=== PATIENT | female | born 1975 | race Caucasian/White ===

== ENCOUNTER 2018-01-12 16:20 | Emergency (ER) | payer BC ==
[~2018-01-12] VITALS: Ht 167.6 cm; Wt 113.4 kg
[~2018-01-12 16:20] MED LIST: ACETAMINOPHEN-1 EAC1 PO; ALDACTONE25 MG; ALDACTONE25 MG PO; AZITHROMYCIN 2250 MG PO; CIPRODEX OTIC7.5 ML OTIC; CIPROFLOXIN HC2.5 M1 OTIC; FLEXERIL PO; HYDROCODON-ACE1 EAC7 PO; HYDROCODONE-AP1 EAC6 PO; IBUPROFEN 800800 M1 PO; LIPITOR10 MG PO; MEDROLDOSEPACK PO; MOMETASONE FURO30 ML; NAPROSYN500 MG PO; NOHOMEMEDICATIONS; NORCO 5-325 TA1 EAC1 PO; PROAIR HFA8.5 GM INH; PROMETHAZINE D480 ML PO; ROBAXIN500 MG PO; TESSALON PERLE100 MG PO; TOPAMAX 100 MG100 MG PO; TORADOL 10 MG T10 MG PO; TRAZODONE HCL50 MG PO; ZOFRAN ODT4 MG PO; ZOFRAN4 MG PO; ZPAK PO
[2018-01-12 16:48] LABS: URINE BILIRUBIN NEGATIVE (Negative); URINE BLOOD NEGATIVE (Negative); URINE CLARITY CLEAR; URINE COLOR YELLOW; URINE GLUCOSE-RANDOM NEGATIVE (Negative); URINE KETONES NEGATIVE (Negative); URINE LEUKOCYTES-REFLEX NEGATIVE (Negative); URINE NITRITE-REFLEX NEGATIVE (Negative); URINE PROTEIN NEGATIVE (Negative); URINE SPECIFIC GRAVITY 1.015 (1.005-1.030); URINE UROBILINOGEN 0.2 E.U./dl (0.2-1.0)
[2018-01-12 16:56] LABS: ABSOLUTE BASOPHILS 0.1 thou/uL (0.0-0.2); ABSOLUTE EOSINOPHILS 0.4 thou/uL (0.0-0.7); ABSOLUTE LYMPHOCYTES 2.8 thou/uL (0.8-5.3); ABSOLUTE MONOCYTES 0.6 thou/uL (0.0-1.2); ABSOLUTE NEUTROPHILS 5.9 thou/uL (1.6-8.1); BASOPHILS 0.7 %; EOSINOPHILS 4.1 %; HEMATOCRIT 40.7 % (37.0-47.0); HEMOGLOBIN 14.1 gm/dL (12.0-15.0); LYMPHOCYTES 28.7 %; MCH 31.4 pg (26.0-34.0); MCHC 34.6 g/dL (28.0-37.0); MCV 90.6 fL (80.0-100.0); MONOCYTES 6.1 %; MPV 7.6 fl. (7.2-11.1); NUCLEATED RBCS 0 /100WBC; PLATELET COUNT* 246 thou/uL (150-400); POLYS 60.4 %; RBC 4.49 mil/uL (4.20-5.00); RDW-CV 13.4 % (10.5-14.5); WBC 9.8 thou/uL (4.0-11.0)
[2018-01-12 17:01] LABS: ANION GAP 7 mmol/L (7-16); BUN 9 mg/dL (7-18); CALCIUM 8.2 mg/dL (8.5-10.1); CHLORIDE 107 mmol/L (98-107); CO2 25 mmol/L (21-32); CREATININE 0.8 mg/dL (0.6-1.3); GLUCOSE 139 mg/dL (70-99); POTASSIUM 3.5 mmol/L (3.5-5.1); SODIUM 139 mmol/L (136-145)
[2018-01-12 17:08] LABS: ALBUMIN 3.5 g/dL (3.4-5.0); ALKALINE PHOSPHATASE 59 U/L (46-116); LIPASE 250 U/L (73-393); SGOT 12 U/L (15-37); SGPT 21 U/L (30-65); TOTAL BILIRUBIN 0.2 mg/dL (<0.1-1.0); TOTAL PROTEIN 7.3 g/dL (6.4-8.2); TROPONIN-I LEVEL <0.06 ng/mL (<0.06)
[2018-01-12] MEDS ORDERED: BENTYL 20 MG TA20 M1 PO (17:33)
[2018-01-12] MEDS ORDERED: IMODIUM A-D2 MG PO (17:33)
[2018-01-12] MEDS ORDERED: PHENERGAN 25 MG25 M1 PO (17:33)
[2018-01-12 17:42] VITALS: BP 125/76
--- NOTE | 2018-01-14 10:22 | EKG ---
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 : 1975 Requested By: Nolan Woo Order Number: [id number] MD: Juan Ozuna Measurements Intervals [place] Rate: 81 P: 26 TN: 143 QRS: 4 QRSD: 90 T: 44 QT: 380 QTc: 441 Interpretive Statements Sinus rhythm Low voltage, precordial leads Borderline T abnormalities, anterior leads Compared to ECG 03/08/2016 21:17:13 T-wave abnormality now present Electronically Signed On 01-14-2018 10:21:56 CDT by Juan Ozuna [email or web address] <ELECTRONICALLY SIGNED> By: Juan Ozuna MD, [facility] 01/14/18 1021 1718 1718 Juan Ozuna MD, [facility] /EPI
== END 2018-01-12 17:44 | disposition home or self-care (01) ==
LOC: M.ERS 16:20
PROVIDERS: Emergency Medicine Emergency Medical Services
DX: K52.9 Noninfective gastroenteritis and colitis, unspecified (principal); M79.7 Fibromyalgia; F17.210 Nicotine dependence, cigarettes, uncomplicated; Z88.2 Allergy status to sulfonamides; Z88.0 Allergy status to penicillin; Z91.041 Radiographic dye allergy status; Z91.040 Latex allergy status; Z88.6 Allergy status to analgesic agent; Z87.442 Personal history of urinary calculi

== ENCOUNTER 2018-02-22 10:46 | Emergency (ER) | payer BC ==
[~2018-02-22] VITALS: Ht 167.6 cm; Wt 113.4 kg
[~2018-02-22 10:46] MED LIST changes: +BENTYL 20 MG TA20 M1 PO; +IMODIUM A-D2 MG PO; +PHENERGAN 25 MG25 M1 PO
[2018-02-22] MEDS ORDERED: PROMS25 WY RECTAL (11:01)
[2018-02-22] MEDS ORDERED: LOPERAMIDE 2 MG2 M1 PO (11:02)
[2018-02-22] MEDS ORDERED: NORCO 5-325 TA1 EACH PO (12:25)
[2018-02-22 12:54] VITALS: BP 100/58
== END 2018-02-22 12:54 | disposition home or self-care (01) ==
LOC: M.ERS 10:46
DX: S93.491A Sprain of other ligament of right ankle, initial encounter (principal); S93.691A Other sprain of right foot, initial encounter; M79.7 Fibromyalgia; Z88.0 Allergy status to penicillin; Z88.2 Allergy status to sulfonamides; Z91.041 Radiographic dye allergy status; Z91.040 Latex allergy status; Z87.442 Personal history of urinary calculi; Z88.6 Allergy status to analgesic agent; W18.39XA Other fall on same level, initial encounter; Y93.89 Activity, other specified; Y92.89 Other specified places as the place of occurrence of the external cause; Y99.8 Other external cause status

== ENCOUNTER 2018-05-07 19:34 | Emergency (ER) | payer BC ==
[~2018-05-07] VITALS: Ht 167.6 cm; Wt 113.4 kg
[~2018-05-07 19:34] MED LIST changes: +LOPERAMIDE 2 MG2 M1 PO; +NORCO 5-325 TA1 EACH PO; +PROMS25 WY RECTAL
[2018-05-07] MEDS ORDERED: ROBAXIN 750 MG750 M1 PO (20:37)
[2018-05-07] MEDS ORDERED: ACETAMINOPHEN-1 EAC1 PO (20:37)
[2018-05-07 21:21] VITALS: BP 126/102
== END 2018-05-07 21:21 | disposition home or self-care (01) ==
LOC: M.ERS 19:34
DX: M54.6 Pain in thoracic spine (principal); M54.5 Low back pain; M79.7 Fibromyalgia; Z88.6 Allergy status to analgesic agent; Z88.2 Allergy status to sulfonamides; Z91.040 Latex allergy status; Z88.0 Allergy status to penicillin; Z91.041 Radiographic dye allergy status; Z87.442 Personal history of urinary calculi; Z98.890 Other specified postprocedural states

== ENCOUNTER 2018-06-09 02:55 | Emergency (ER) | payer OTHER ==
[~2018-06-09] VITALS: Ht 167.6 cm; Wt 113.4 kg
[~2018-06-09 02:55] MED LIST changes: +ROBAXIN 750 MG750 M1 PO
[2018-06-09] MEDS ORDERED: ENDOCET 7.5-321 EACH PO (04:08)
[2018-06-09 04:30] VITALS: BP 108/67
== END 2018-06-09 04:32 | disposition home or self-care (01) ==
LOC: M.ERS 02:55
DX: T21.22XA Burn of second degree of abdominal wall, initial encounter (principal); T23.201A Burn of second degree of right hand, unspecified site, initial encounter; T31.0 Burns involving less than 10% of body surface; M79.7 Fibromyalgia; F17.210 Nicotine dependence, cigarettes, uncomplicated; Z87.442 Personal history of urinary calculi; Z98.890 Other specified postprocedural states; Z88.6 Allergy status to analgesic agent; Z88.2 Allergy status to sulfonamides; Z91.040 Latex allergy status; Z88.0 Allergy status to penicillin; Z91.041 Radiographic dye allergy status; X08.8XXA Exposure to other specified smoke, fire and flames, initial encounter; Y93.89 Activity, other specified; Y92.89 Other specified places as the place of occurrence of the external cause; Y99.0 Civilian activity done for income or pay

== ENCOUNTER 2018-07-02 18:37 | Emergency (ER) | payer OTHER ==
[~2018-07-02] VITALS: Ht 167.6 cm; Wt 113.4 kg
[~2018-07-02 18:37] MED LIST changes: +ENDOCET 7.5-321 EACH PO
[2018-07-02] MEDS ORDERED: NORCO 5-325 TA1 EACH PO (18:46)
[2018-07-02] MEDS ORDERED: IBUPROFEN 800800 M1 PO (18:47)
[2018-07-02] MEDS ORDERED: CLEOCIN HCL300 MG PO (19:41)
[2018-07-02] MEDS ORDERED: MEDROLDOSEPACK PO (19:41)
[2018-07-02 20:06] VITALS: BP 91/61
== END 2018-07-02 20:06 | disposition home or self-care (01) ==
LOC: M.ERS 18:37
DX: L03.116 Cellulitis of left lower limb (principal); M79.7 Fibromyalgia; Z90.49 Acquired absence of other specified parts of digestive tract; F17.200 Nicotine dependence, unspecified, uncomplicated; Z88.0 Allergy status to penicillin; Z88.2 Allergy status to sulfonamides; Z88.6 Allergy status to analgesic agent; Z91.041 Radiographic dye allergy status; Z91.040 Latex allergy status

== ENCOUNTER 2018-11-24 00:48 | Emergency (ER) | payer OTHER ==
[~2018-11-24] VITALS: Ht 167.6 cm; Wt 113.4 kg
[~2018-11-24 00:48] MED LIST changes: +CLEOCIN HCL300 MG PO
[2018-11-24 04:06] VITALS: BP 99/41
== END 2018-11-24 04:06 | disposition home or self-care (01) ==
LOC: M.ERS 00:48
DX: S09.8XXA Other specified injuries of head, initial encounter (principal); G43.909 Migraine, unspecified, not intractable, without status migrainosus; M79.7 Fibromyalgia; Z90.49 Acquired absence of other specified parts of digestive tract; Z88.0 Allergy status to penicillin; Z88.2 Allergy status to sulfonamides; Z88.6 Allergy status to analgesic agent; Z91.040 Latex allergy status; Y04.8XXA Assault by other bodily force, initial encounter; Y93.89 Activity, other specified; Y92.89 Other specified places as the place of occurrence of the external cause; Y99.8 Other external cause status

== ENCOUNTER 2019-03-31 06:49 | Emergency (ER) | payer OTHER ==
[~2019-03-31] VITALS: Ht 167.6 cm; Wt 113.4 kg
[2019-03-31] MEDS ORDERED: IBUPROFEN 800800 M1 PO (06:57)
[2019-03-31 07:07] LABS: URINE BILIRUBIN NEGATIVE (Negative); URINE BLOOD NEGATIVE (Negative); URINE CLARITY CLEAR; URINE COLOR YELLOW; URINE GLUCOSE-RANDOM NEGATIVE (Negative); URINE KETONES NEGATIVE (Negative); URINE LEUKOCYTES-REFLEX NEGATIVE (Negative); URINE NITRITE-REFLEX NEGATIVE (Negative); URINE PROTEIN NEGATIVE (Negative); URINE UROBILINOGEN 0.2 E.U./dl (0.2-1.0)
[2019-03-31 07:27] LABS: HEMATOCRIT 40.9 % (37.0-47.0); HEMOGLOBIN 14.4 gm/dL (12.0-15.0); MCH 30.9 pg (26.0-34.0); MCHC 35.2 g/dL (28.0-37.0); MCV 87.9 fL (80.0-100.0); MPV 7.3 fl. (7.2-11.1); RBC 4.66 mil/uL (4.20-5.00); RDW-CV 13.9 % (10.5-14.5); WBC 9.3 thou/uL (4.0-11.0)
[2019-03-31 07:32] LABS: CALCIUM 8.8 mg/dL (8.5-10.1); CREATININE 0.9 mg/dL (0.6-1.3); POTASSIUM 3.4 mmol/L (3.5-5.1)
[2019-03-31 07:37] LABS: ALBUMIN 3.9 g/dL (3.4-5.0); TOTAL BILIRUBIN 0.3 mg/dL (<0.1-1.0); TOTAL PROTEIN 7.7 g/dL (6.4-8.2)
[2019-03-31] MEDS ORDERED: ZOFRAN ODT4 MG DISSOLVE (09:09)
[2019-03-31] MEDS ORDERED: NORCO 5-325 TA1 EAC1 PO (09:09)
[2019-03-31 09:27] VITALS: BP 101/70
== END 2019-03-31 09:31 | disposition home or self-care (01) ==
LOC: M.ERS 06:49
PROVIDERS: Emergency Medicine Emergency Medical Services
DX: R10.9 Unspecified abdominal pain (principal); M79.7 Fibromyalgia; Z88.6 Allergy status to analgesic agent; Z88.2 Allergy status to sulfonamides; Z91.040 Latex allergy status; Z91.041 Radiographic dye allergy status; Z88.0 Allergy status to penicillin; Z87.442 Personal history of urinary calculi; Z98.51 Tubal ligation status

== ENCOUNTER 2020-11-04 19:49 | Emergency (ER) | payer BC ==
[~2020-11-04] VITALS: Ht 167.6 cm; Wt 113.4 kg
[~2020-11-04 19:49] MED LIST changes: +ZOFRAN ODT4 MG DISSOLVE
[2020-11-04] MEDS ORDERED: PROMETHAZINE-C473 ML PO (23:56)
[2020-11-04] MEDS ORDERED: CEFDINIR300 MG PO (23:56)
[2020-11-05 00:11] VITALS: BP 132/79
== END 2020-11-05 00:11 | disposition home or self-care (01) ==
LOC: M.ERS 19:49
DX: J02.0 Streptococcal pharyngitis (principal); Z20.822 Contact with and (suspected) exposure to COVID-19; M79.7 Fibromyalgia; Z88.2 Allergy status to sulfonamides; Z88.6 Allergy status to analgesic agent; Z91.040 Latex allergy status; Z88.0 Allergy status to penicillin; Z91.041 Radiographic dye allergy status; Z87.442 Personal history of urinary calculi; Z98.51 Tubal ligation status

== ENCOUNTER 2021-02-18 20:16 | Emergency (ER) | payer OTHER ==
[~2021-02-18] VITALS: Ht 167.6 cm; Wt 108.9 kg
[~2021-02-18 20:16] MED LIST changes: +CEFDINIR300 MG PO; +PROMETHAZINE-C473 ML PO
[2021-02-18 21:09] LABS: ABSOLUTE EOSINOPHILS 0.2 thou/uL (0.0-0.7); ABSOLUTE LYMPHOCYTES 1.9 thou/uL (0.8-5.3); ABSOLUTE MONOCYTES 0.6 thou/uL (0.0-1.2); BASOPHILS 0.5 %; EOSINOPHILS 3.2 %; HEMATOCRIT 39.5 % (37.0-47.0); HEMOGLOBIN 13.9 gm/dL (12.0-15.0); LYMPHOCYTES 24.8 %; MCH 30.9 pg (26.0-34.0); MCHC 35.3 g/dL (28.0-37.0); MCV 87.7 fL (80.0-100.0); MONOCYTES 7.9 %; MPV 6.7 fl. (7.2-11.1); NUCLEATED RBCS 0 /100WBC; PLATELET COUNT* 243 thou/uL (150-400); POLYS 63.6 %; RBC 4.51 mil/uL (4.20-5.00); RDW-CV 13.8 % (10.5-14.5); WBC 7.8 thou/uL (4.0-11.0)
[2021-02-18 21:26] LABS: CALCIUM 8.5 mg/dL (8.5-10.1); CREATININE 0.7 mg/dL (0.6-1.3); POTASSIUM 3.4 mmol/L (3.5-5.1)
[2021-02-18 21:30] LABS: ALBUMIN 3.5 g/dL (3.4-5.0); TOTAL BILIRUBIN 0.4 mg/dL (<0.1-1.0); TOTAL PROTEIN 7.2 g/dL (6.4-8.2)
[2021-02-18 21:59] LABS: URINE BILIRUBIN NEGATIVE (Negative); URINE BLOOD NEGATIVE (Negative); URINE CLARITY CLEAR; URINE COLOR YELLOW; URINE GLUCOSE-RANDOM NEGATIVE (Negative); URINE KETONES NEGATIVE (Negative); URINE LEUKOCYTES-REFLEX NEGATIVE (Negative); URINE NITRITE-REFLEX NEGATIVE (Negative); URINE PROTEIN NEGATIVE (Negative); URINE UROBILINOGEN 0.2 E.U./dl (0.2-1.0)
[2021-02-18 22:13] LABS: AMP/METHAMP Negative (Negative); BARBITURATES Negative (Negative); BENZODIAZEPINES Negative (Negative); COCAINE Negative (Negative); METHADONE Negative (Negative); OPIATES Negative (Negative); PCP Negative (Negative); THC Negative (Negative)
[2021-02-19] MEDS ORDERED: CARAFATE 1 GM TA1 GM PO (00:33)
[2021-02-19] MEDS ORDERED: OMEPRAZOLE40 MG PO (00:33)
[2021-02-19 00:39] VITALS: BP 126/68
--- NOTE | 2021-02-19 09:50 | EKG ---
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
== END 2021-02-19 00:39 | disposition home or self-care (01) ==
LOC: M.ERS 20:16
PROVIDERS: Personal Emergency Response Attendant
DX: R10.13 Epigastric pain (principal); Z20.822 Contact with and (suspected) exposure to COVID-19; M79.7 Fibromyalgia; Z87.442 Personal history of urinary calculi; Z79.899 Other long term (current) drug therapy; Z79.1 Long term (current) use of non-steroidal anti-inflammatories (NSAID); Z88.5 Allergy status to narcotic agent; Z88.0 Allergy status to penicillin; Z88.2 Allergy status to sulfonamides; Z91.041 Radiographic dye allergy status; Z91.040 Latex allergy status

== ENCOUNTER 2021-02-25 17:09 | Emergency (ER) | payer OTHER ==
[~2021-02-25] VITALS: Ht 167.6 cm; Wt 108.9 kg
[~2021-02-25 17:09] MED LIST changes: +CARAFATE 1 GM TA1 GM PO; +OMEPRAZOLE40 MG PO
[2021-02-25 17:33] LABS: URINE BILIRUBIN NEGATIVE (Negative); URINE BLOOD NEGATIVE (Negative); URINE CLARITY CLEAR; URINE COLOR YELLOW; URINE GLUCOSE-RANDOM NEGATIVE (Negative); URINE KETONES NEGATIVE (Negative); URINE LEUKOCYTES-REFLEX 1+ (Negative); URINE NITRITE-REFLEX NEGATIVE (Negative); URINE PROTEIN NEGATIVE (Negative); URINE UROBILINOGEN 0.2 E.U./dl (0.2-1.0)
[2021-02-25 17:44] LABS: SQUAMOUS 4-10 Moderate /LPF (0-3); URINE RBC 0-2 Rare /HPF (0-2); URINE WBC-REFLEX 6-15 Few /HPF (0-5)
[2021-02-25 17:45] LABS: CASTS None Seen /LPF (None Seen); CRYSTALS None Seen /LPF (None Seen); MUCUS 0-3 Light strn/LPF (None Seen)
[2021-02-25 17:55] LABS: ABSOLUTE EOSINOPHILS 0.3 thou/uL (0.0-0.7); ABSOLUTE LYMPHOCYTES 1.8 thou/uL (0.8-5.3); ABSOLUTE MONOCYTES 0.8 thou/uL (0.0-1.2); ABSOLUTE NEUTROPHILS 6.3 thou/uL (1.6-8.1); BASOPHILS 0.4 %; HEMATOCRIT 40.8 % (37.0-47.0); HEMOGLOBIN 14.1 gm/dL (12.0-15.0); LYMPHOCYTES 19.5 %; MCH 30.7 pg (26.0-34.0); MCHC 34.5 g/dL (28.0-37.0); MCV 89.1 fL (80.0-100.0); MONOCYTES 8.6 %; MPV 6.9 fl. (7.2-11.1); NUCLEATED RBCS 0 /100WBC; PLATELET COUNT* 206 thou/uL (150-400); POLYS 68.5 %; RBC 4.58 mil/uL (4.20-5.00); RDW-CV 13.7 % (10.5-14.5); WBC 9.1 thou/uL (4.0-11.0)
[2021-02-25 18:05] LABS: CALCIUM 8.9 mg/dL (8.5-10.1); CREATININE 0.7 mg/dL (0.6-1.3); POTASSIUM 3.9 mmol/L (3.5-5.1)
[2021-02-25 18:11] LABS: ALBUMIN 3.4 g/dL (3.4-5.0); TOTAL BILIRUBIN 0.3 mg/dL (<0.1-1.0); TOTAL PROTEIN 7.3 g/dL (6.4-8.2)
[2021-02-25] MEDS ORDERED: DICYCLOMINE HCL20 MG PO (19:40)
[2021-02-25] MEDS ORDERED: CEPHALEXIN500 MG PO (19:40)
[2021-02-25 20:21] VITALS: BP 124/70
== END 2021-02-25 20:22 | disposition home or self-care (01) ==
LOC: M.ERS 17:09
PROVIDERS: Nurse Practitioner Family
DX: K59.00 Constipation, unspecified (principal); N39.0 Urinary tract infection, site not specified; M79.7 Fibromyalgia; Z87.442 Personal history of urinary calculi; Z98.51 Tubal ligation status; Z79.899 Other long term (current) drug therapy; Z88.6 Allergy status to analgesic agent; Z88.2 Allergy status to sulfonamides; Z91.040 Latex allergy status; Z88.0 Allergy status to penicillin; Z91.041 Radiographic dye allergy status

== ENCOUNTER 2021-03-18 15:14 | Emergency (ER) | payer OTHER ==
[~2021-03-18] VITALS: Ht 167.6 cm; Wt 108.9 kg
[~2021-03-18 15:14] MED LIST changes: +CEPHALEXIN500 MG PO; +DICYCLOMINE HCL20 MG PO
[2021-03-18 15:55] LABS: ABSOLUTE EOSINOPHILS 0.2 thou/uL (0.0-0.7); ABSOLUTE LYMPHOCYTES 1.8 thou/uL (0.8-5.3); ABSOLUTE MONOCYTES 0.5 thou/uL (0.0-1.2); BASOPHILS 0.4 %; EOSINOPHILS 2.5 %; HEMATOCRIT 41.1 % (37.0-47.0); HEMOGLOBIN 14.1 gm/dL (12.0-15.0); LYMPHOCYTES 21.3 %; MCH 30.9 pg (26.0-34.0); MCHC 34.3 g/dL (28.0-37.0); MONOCYTES 6.1 %; MPV 7.1 fl. (7.2-11.1); NUCLEATED RBCS 0 /100WBC; PLATELET COUNT* 249 thou/uL (150-400); POLYS 69.7 %; RBC 4.57 mil/uL (4.20-5.00); WBC 8.6 thou/uL (4.0-11.0)
[2021-03-18 16:01] LABS: CALCIUM 8.1 mg/dL (8.5-10.1); CREATININE 0.8 mg/dL (0.6-1.3); POTASSIUM 3.6 mmol/L (3.5-5.1)
[2021-03-18 16:05] LABS: ALBUMIN 3.4 g/dL (3.4-5.0); TOTAL BILIRUBIN 0.2 mg/dL (<0.1-1.0); TOTAL PROTEIN 7.4 g/dL (6.4-8.2)
--- NOTE | 2021-03-18 16:37 | EKG ---
[place] [address] ELECTROCARDIOGRAM REPORT Name: ELISABETH COHEN Room: [facility]#: [id number] Admission: 03/18/21 Attend Phys: Discharge: Date of : 71 Date of Service: 03/18/21 1609 Report #: [id number] THIS REPORT FOR: //name// [facility] ED Test Date: 2021-03-18 Test Time: 16:09:19 Pat Name: ELISABETH COHEN Department: Room: Gender: Acute Care Physician: : 1975 Requested By: Jorge Elena Order Number: [id number] MD: Chase Rock Measurements Intervals [place] Rate: 79 P: 43 [place]: 158 QRS: 10 QRSD: 94 T: 33 QT: 392 QTc: 450 Interpretive Statements Sinus rhythm Low voltage, precordial leads Compared to ECG 02/18/2021 20:16:25 No significant changes Electronically Signed On 03-18-2021 16:37:07 CDT by Chase Rock [email or web address] <ELECTRONICALLY SIGNED> By: Chase Rock MD, FACC 03/18/21 1637 1609 1609 Chase Rock MD, [facility] /EPI
[2021-03-18 16:42] LABS: URINE BILIRUBIN NEGATIVE (Negative); URINE BLOOD NEGATIVE (Negative); URINE CLARITY CLOUDY; URINE COLOR YELLOW; URINE GLUCOSE-RANDOM NEGATIVE (Negative); URINE KETONES NEGATIVE (Negative); URINE LEUKOCYTES NEGATIVE (Negative); URINE NITRITE NEGATIVE (Negative); URINE PROTEIN NEGATIVE (Negative); URINE UROBILINOGEN 0.2 E.U./dl (0.2-1.0)
[2021-03-18 16:48] LABS: MUCUS 4-6 Moderate strn/LPF (None Seen); SQUAMOUS >10 Many /LPF (0-3)
[2021-03-18 16:49] LABS: URINE WBC 0-5 Rare /HPF (0-5)
[2021-03-18 16:50] LABS: AMORPHOUS PHOSPHATES Many /LPF (None Seen); BACTERIA None Seen /HPF (None Seen); CASTS None Seen /LPF (None Seen); URINE RBC None Seen /HPF (0-2)
[2021-03-18] MEDS ORDERED: ZOFRAN ODT4 MG PO (17:04)
[2021-03-18 17:16] VITALS: BP 111/73
== END 2021-03-18 17:17 | disposition home or self-care (01) ==
LOC: M.ERS 15:14
PROVIDERS: Physician Assistant
DX: R11.2 Nausea with vomiting, unspecified (principal); Z90.49 Acquired absence of other specified parts of digestive tract; Z98.51 Tubal ligation status; Z79.899 Other long term (current) drug therapy; Z88.2 Allergy status to sulfonamides; Z88.0 Allergy status to penicillin; Z88.6 Allergy status to analgesic agent; Z91.041 Radiographic dye allergy status; Z91.040 Latex allergy status